=== PATIENT | female | born 1930 | race Caucasian/White ===

== ENCOUNTER 2018-02-22 11:13 | Emergency (ER) | payer OTHER, BC ==
[~2018-02-22] VITALS: Ht 157.5 cm; Wt 54.4 kg
[2018-02-22 11:14] VITALS: BP 140/96
--- NOTE | 2018-02-22 11:15 | NUR ---
PT BIBA BLS TO BED 3
--- NOTE | 2018-02-22 11:18 | NUR ---
Patient being evaluated by physician at bedside.
--- NOTE | 2018-02-22 11:27 | NUR ---
XRAY AT BEDSIDE
--- NOTE | 2018-02-22 11:30 | NUR ---
87Y/F BIBA FOR C/O LEFT WRIST PAIN 5/10 S/P MECHANICAL FALL TODAY. ALSO C/O SKIN TEARS TO RT HAND AND NOSE. DENIES LOC. PT IS AAOX4, EVEN AND UNLABORED BREATHING; BED DOWN; BEDRAIL UP X 1; ER MD AWARE AND NOTIFIED OF PT STATUS. PMH: DENIES
[2018-02-22] MEDS ORDERED: NEOMYCIN/POLYMYXIN/BACITRACIN 0.9 GM/1 PKT TP ONE ×2 (12:30→15:20)
[2018-02-22] MEDS ORDERED: HYDROcodone/APAP 5/325 MG 1 TAB TAB PO ONE (12:30)
[2018-02-22] MEDS ORDERED: LIDOCAINE MPF 2% 100 MG/5 ML VIAL INJ ONE (12:30)
[2018-02-22] MEDS ORDERED: LIDOCAINE MPF 1% - 5 mL VIAL 10 ML ONE (12:49)
[2018-02-22 15:25] VITALS: BP 138/91
--- NOTE | 2018-02-22 15:25 | NUR ---
Patient discharged with v/s stable. Written and verbal after care instructions given and explained. Patient alert, oriented and verbalized understanding of instructions. Ambulatory with steady gait. All questions addressed prior to discharge. ID band removed. Patient advised to follow up with PMD. Rx of BACITRACIN AND NORCO given. Patient educated on indication of medication including possible reaction and side effects. Opportunity to ask questions provided and answered.
== END 2018-02-22 15:25 | disposition home or self-care (01) ==
LOC: MED 11:13
DX: S52.592A Other fractures of lower end of left radius, initial encounter for closed fracture (principal); S52.612A Displaced fracture of left ulna styloid process, initial encounter for closed fracture; W01.0XXA Fall on same level from slipping, tripping and stumbling without subsequent striking against object, initial encounter; Y93.89 Activity, other specified; Y92.89 Other specified places as the place of occurrence of the external cause; Y99.8 Other external cause status
CPT/HCPCS: 12004; 73110; 99284; J2001; Q0092